=== PATIENT | female | born 1970 | race Two or more races ===

== ENCOUNTER 2025-05-28 11:04 | Inpatient (IN) | payer MEDICAID, OTHER ==
[~2025-05-28] VITALS: Ht 160 cm; Wt 197.3 kg
--- NOTE | 2025-05-28 11:30 | ED.PDOC ---
HPI (NEURO) HPI Comments This is a 55 year old female presenting to the ED with chief complaint of headache. Patient reports that she has been experiencing a right sided occipital headache with associated left eye blurred vision for the past 4 days. Patient relays that she has increased pain when laying down. Patient states she visited [facility] for her symptoms, but was advised to come to the ED for further evaluation. Patient states she has history of CVA, TIA, and SDH. Patient denies any dizziness, numbness, weakness, tingling, syncope, chest pain, SOB, or vision loss. Chief Complaint: Headache Time Seen by MD: 11:27 Reviewed Notes: Nurses Notes, Medications, Allergies Information Source: Patient, Spouse Mode of Arrival: Ambulatory Severity: Moderate Headache Severity: Moderate Timing: Days Duration: Since onset Prehospital treatment: None Headache Quality: Aching Headache Location: Occipital Onset: At rest Circumstances: Spontaneous Symptoms: Change of vision History of: CVA, TIA Associated Signs and Symptoms: Headache Past Medical History PAST MEDICAL HISTORY: CVA, TIA Past Medical History (Other): SDH Surgical History: Denies all surgeries [employer] History: Denies all [employer] Hx Family History Family History: Reviewed,noncontributory to illness Social History Smoker: Non-Smoker Alcohol: Denies ETOH Use Drugs: Denies Drug Use Lives In: Home Constitutional: denies: chills, diaphoresis, fatigue, fever, malaise, sweats, weakness, others EENTM: reports: blurred vision; denies: double vision, ear bleeding, ear discharge, ear drainage, ear pain, ear ringing, eye pain, eye redness, hearing loss, mouth pain, mouth swelling, nasal discharge, nose bleeding, nose congestion, nose pain, photophobia, tearing, throat pain, throat swelling, voice changes, others Respiratory: denies: cough, hemoptysis, orthopnea, SOB at rest, shortness of breath, SOB with excertion, stridor, wheezing, others Cardiovascular: denies: chest pain, dizzy spells, diaphoresis, Dyspnea on exertion, edema, irregular heart beat, left arm pain, lightheadedness, palpitat ions, PND, syncope, others Gastrointestinal: denies: abdomen distended, abdominal pain, blood streaked bow els, constipated, diarrhea, dysphagia, difficulty swallowing, hematemesis, melena, nausea, poor appetite, poor fluid intake, rectal bleeding, rectal pain, vomiting, others Genitourinary: denies: abnormal vagina bleeding, burning, dyspareunia, dysuria, flank pain, frequency, hematuria, incontinence, pain, , vagina discharge, urgency, others Neurological: reports: headache; denies: dizziness, fainting, left sided numbness, left sided weakness, numbness, paresthesia, pre-existing deficit, right sided numbness, right sided weakness, seizure, speech problems, tingling, tremors, weakness, others Musculoskeletal: denies: back pain, gout, joint pain, joint swelling, muscle pain, muscle stiffness, neck pain, others Integumetry: denies: bruises, change in color, change in hair/nails, dryness, laceration, lesions, lumps, rash, wounds, others Allergic/Immunocompromised: denies: Difficulty Healing, Frequent Infections, Hives, Itching, others Hematologic/Lymphatic: denies: anemia, blood clots, easy bleeding, easy bruising, swollen glands, others Endocrine: denies: excessive hunger, excessive sweating, excessive thirst, excessive urination, flushing, intolerance to cold, intolerance to heat, unexplained weight gain, unexplained weight loss, others Psychiatric: denies: anxiety, bipolar disorder, depression, hopeless, panic di sorder, schizophrenia, sleepless, suicidal, others All Other Systems: Reviewed and Negative Physical Exam General Appearance: Moderate Distress, Normal HEENT: Normal ENT Inspection, Pharynx Normal, TMs Normal Neck: Full Range of Motion, Non-Tender, Normal, Normal Inspection Respiratory: Chest Non-Tender, Lungs Clear, No Accessory Muscle Use, No Respiratory Distress, Normal Breath Sounds Cardiovascular: No Edema, No JVD, No Murmur, No Gallop, Normal Peripheral Pulses, Regular Rate/Rhythm Breast Exam: Deferred Gastrointestinal: No Organomegaly, Non Tender, No Pulsatile Mass, Normal Bowel Sounds, Soft Genitalia: Deferred Pelvic: Deferred Rectal: Deferred Extremities: No calf tenderness, Normal capillary refill, Normal inspection, Normal range of motion, Non-tender, No pedal edema Musculoskeletal : Apperance: Normal Neurologic: Alert, crew mess attendant II-XII nml as Tested, No Motor Deficits, Normal Affect, Normal Mood, No Sensory Deficits Cerebellar Function: Normal Reflexes: Normal Skin: Dry, Normal Color, Warm Peripheral Pulses: 3+ Radial (R), 3+ Radial (L) Lymphatic: No Adenopathy Was a procedure done? Was a procedure done?: No Differential Diagnosis (SZ) Seizure: Psychogenic Seizure, Closed Head Injury, CVA/TIA X-Ray, Labs, Meds, VS Vital Signs Date Time Temp Pulse Resp B/P (MAP) Pulse Ox O2 Delivery O2 Flow Rate FiO2 05/28/25 11:07 98.0 68 18 160/81 99 98.0 Lab Test 05/28/25 11:37 Range/Units White Blood Count 5.7 4.4-10.8 10^3/uL Red Blood Count 4.50 4.0-5.20 10^6/uL Hemoglobin 14.8 12.2-16.2 g/dL Hematocrit 42.8 36.0-46.0 % Mean Corpuscular Volume 95.0 80.0-100.0 fL Mean Corpuscular Hemoglobin 32.8 H 28.0-32.0 pg Mean Corpuscular Hemoglobin Concent 34.5 32.0-36.0 g/dL Red Cell Distribution Width 13.6 11.8-14.3 % Platelet Count 185 140-450 10^3/uL Mean Platelet Volume 8.4 6.9-10.8 fL Neutrophils (%) (Auto) 39.1 37.0-80.0 % Lymphocytes (%) (Auto) 52.5 H 10.0-50.0 % Monocytes (%) (Auto) 7.1 0.0-12.0 % Eosinophils (%) (Auto) 0.5 0.0-7.0 % Basophils (%) (Auto) 0.8 0.0-2.0 % Neutrophils # (Auto) 2.2 1.6-8.6 10 ^3/uL Lymphocytes # (Auto) 3.0 0.4-5.4 10 ^3/uL Monocytes # (Auto) 0.4 0-1.3 10 ^3/uL Eosinophils # (Auto) 0 0-0.8 10 ^3/uL Basophils # (Auto) 0 0-0.2 10 ^3/uL Nucleated Red Blood Cells 0.2 % Sodium Level 141 136-145 mmol/L Potassium Level 4.7 3.5-5.1 mmol/L Chloride Level 102 98-107 mmol/L Carbon Dioxide Level 30 20-31 mmol/L Anion Gap 9 5-15 Blood Urea Nitrogen 13 9-23 mg/dL Creatinine 0.70 0.550-1.02 mg/dL Glomerular Filtration Rate Calc 101 >90 mL/min BUN/Creatinine Ratio 18.6 10.0-20.0 Serum Glucose 134 H 74-106 mg/dL Calcium Level 10.5 H 8.7-10.4 mg/dL [place] [id number] Ph: [phone] DIAGNOSTIC IMAGING Diagnostic Imaging Report : [id number] Signed PATIENT: CRISTIAN HERNANDEZ ACCT: [id number] UNIT: [id number] : 1970 LOC: ER ROOM / BED: / AGE / SEX: 55 / F ADM STATUS: REG ER SERVICE 27 ORDERING PHYSICIAN: JULIO THOMASON MD PROCEDURE(s): HWOCT - HEAD WITHOUT CONTRAST REASON: headache ORDER NUMBER(s): [id number], ACCESSION NUMBER(s): [id number] EXAM: CT HEAD WITHOUT CONTRAST INDICATION: headache TECHNIQUE: CT images of the head were obtained without administration of IV contrast. CT scans at this facility use dose modulation, iterative reconstruction, and/or weight based dosing when appropriate to reduce radiation dose to as low as reasonably achievable. COMPARISON: None FINDINGS: PARENCHYMA: No acute hemorrhage. There is no mass effect, midline shift, or herniation. There is preservation of the [place] white differentiation. VENTRICLES: No hydrocephalus. EXTRA-AXIAL SPACES: No extra-axial fluid collections. OTHER: The bony structures are intact. Visualized portions of the paranasal sinuses and mastoid air cells are clear. IMPRESSION: 1. No CT evidence of an acute intracranial abnormality. ATED BY: MICHAEL SALINAS MD DICTATED DATE/TIME: 05/28/251220 SIGNED BY: MICHAEL SALINAS MD SIGNED DATE/TIME: 05/28/251220 CC: Patient alert. Complaining of headache vision changes. Vitals stable. Answering questions. Had similar symptom in the past. Possibly will need MRI. CT of the head reviewed does not show any acute changes. Neurologically intact. Neurology consultation. Explained to the patient. Continue monitoring. Images Reviewed?: Images reviewed and evaluated by me Time of 1ST Reevaluation: 12:26 Reevaluation 1ST: Unchanged Patient Education/Counseling: Diagnosis, Treatment Family Education/Counseling: Diagnosis, Treatment Departure 1 Departure Time of Disposition: 13:48 Impression: Primary Impression: TIA (transient ischemic attack) Disposition: 09 ADMITTED INPATIENT Admit to: Med Surg Condition: Guarded Critical Care Note Critical Care Time?: Yes (90 min-critical care time only) Stability Stability form required: No Heart Score Heart Score: Heart Score Response (Comments) Value History N/A 0 EKG N/A 0 Age N/A 0 Risk Factors N/A 0 Troponin N/A 0 Total 0 I personally scribed for JULIO THOMASON MD ([email or web address]) on 05/28/25 at 11:30. Electronically submitted by Jw Jose ([email or web address]). I personally scribed for JULIO THOMASON MD ([email or web address]) on 05/28/25 at 12:38. Electronically submitted by Jw Jose ([email or web address]). JULIO THOMASON MD May 28, 2025 11:30
[2025-05-28 11:51] LABS: Hematocrit 42.8 % (36.0-46.0); Hemoglobin 14.8 g/dL (12.2-16.2); Mean Corpuscular Hemoglobin 32.8 pg (28.0-32.0); Mean Corpuscular Volume 95.0 fL (80.0-100.0); Nucleated Red Blood Cells % 0.2 %
[2025-05-28 12:00] LABS: Chloride 102 mmol/L (98-107); Potassium 4.7 mmol/L (3.5-5.1); Sodium 141 mmol/L (136-145)
[2025-05-28 12:01] LABS: Anion Gap 9 (5-15); Carbon Dioxide 30 mmol/L (20-31)
[2025-05-28 12:02] LABS: Calcium 10.5 mg/dL (8.7-10.4)
[2025-05-28 12:06] LABS: BUN/Creatinine Ratio 18.6 (10.0-20.0); Blood Urea Nitrogen 13 mg/dL (9-23)
[2025-05-28 12:07] LABS: Glucose 134 mg/dL (74-106)
--- NOTE | 2025-05-28 12:23 | DVH ---
EXAM: CT HEAD WITHOUT CONTRAST INDICATION: headache TECHNIQUE: CT images of the head were obtained without administration of IV contrast. CT scans at [facility] facility use dose modulation, iterative reconstruction, and/or weight based dosing when appropriate to reduce radiation dose to as low as reasonably achievable. COMPARISON: None FINDINGS: PARENCHYMA: No acute hemorrhage. There is no mass effect, midline shift, or herniation. There is pres ervation of the [place] white differentiation. VENTRICLES: No hydrocephalus. EXTRA-AXIAL SPACES: No extra-axial fluid collections. OTHER: The bony structures are intact. Visualized portions of the paranasal sinuses and mastoid air cells are clear. IMPRESSION: 1. No CT evidence of an acute intracranial abnormality.
[2025-05-28] MEDS ORDERED: DEXTROSE (50%) 50ML SYRG IV PRN (21:00)
[2025-05-28] MEDS ORDERED: SODIUM CHLORIDE 0.9% 1,000 ML IV ONE (21:00)
[2025-05-28] MEDS: ACETAMINOPHEN 650 mg PER 20.3 mL UD PO ONE (21:00)
[2025-05-28 21:16] LABS: Urine Protein, UAD Negative (Negative)
--- NOTE | 2025-05-28 21:38 | DVHHPRES ---
History of Present Illness Resident Creating Document: NITESH CASTILLO History of Present Illness Patient is a 55-year-old female with past medical history of rheumatoid arthritis and type 2 diabetes mellitus, presented to [facility] ED with complaint of headache. She reports experiencing a right-sided occipital headache for the past four days, which is associated with blurred vision in her left eye, pain worsens when lying down. The patient states that she visited urgent care at [place] for these symptoms today morning and was advised to come to the emergency department for further evaluation. She denies dizziness, numbness, weakness, tingling, syncope, chest pain, shortness of breath, or vision loss. On evaluation in the ED, patient is afebrile and blood pressure is 160/81 mmHg. Initial labs show serum glucose 134. CT head without contrast shows no CT evidence of an acute intracranial abnormality. Patient is admitted for further evaluation and management. Rheumatologic: Rheumatoid arthritis Endocrine: Diabetes Past Surgical History: Family History: None Smoke: No ALCOHOL: none Drugs: None Lives: with Family Review of Systems Review of Systems Eyes: No Pain, Right eye blurred vision, No Conjunctivae inflammation, No Eyelid inflammation, No Other, No Redness ENT: No Ear pain, No Ear discharge, No Nose pain, No Nose discharge, No Nose congestion, No Mouth pain, No Mouth swelling, No Throat pain, No Throat swelling, No Other Cardiovascular: No Chest Pain, No Palpitations, No Orthopnea, No Paroxysmal No Dyspnea, No Edema, No Lt Headedness, No Other Respiratory: No Cough, No Dry, No Shortness of breath, No SOB with exertion, No Wheezing, No Hemoptysis, No Pleuritic Pain, No Sputum, No Other Gastrointestinal: No Nausea, No Vomiting, No Abdominal Pain, No Diarrhea, No Constipation, No Melena, No Hematochezia, No Other Genitourinary: No Dysuria, No Frequency, No Incontinence, No Hematuria, No Retention, No Other Musculoskeletal: No other, No neck pain, No shoulder pain, No arm pain, No back pain, No hand pain, No leg pain, No foot pain Skin: No Rash, No Lesions, No Jaundice, No Bruising, No Other Allergies: Coded Allergies: Diclofenac (Verified Allergy, Unknown, 05/28/25) NSAIDs (Verified Allergy, Unknown, 05/28/25) Medications Current Medications Medications Dose Ordered Sig/Norma Route Start Time Stop Time Status Last Admin Dose Admin Diagnostic Test (Pha) 1 strip ACHS 05/28/25 22:00 UNV Insulin Human Regular ACHS SC 05/28/25 22:00 UNV Dextrose 50 ml UD PRN IV 05/28/25 21:00 UNV Acetaminophen 650 mg Q6HP PRN PO 05/28/25 21:00 UNV Exam Vital Signs Vital Signs Date Time Temp Pulse Resp B/P (MAP) Pulse Ox O2 Delivery O2 Flow Rate FiO2 05/28/25 19:57 97.8 72 14 145/88 (107) 97 97.8 Exam General Appearance: Cooperative. Well developed. Well nourished. NAD Head Exam: Normal inspection Neck Exam: Normal inspection. Non-tender. Normal alignment Pulmonary/Respiratory: Chest non-tender. Clear bilateral breath sounds, no crackles, no wheezing. Cardiovascular/Chest: Regular rate and rhythm. No murmurs. No JVD. Peripheral Pulses: 2+ Radial (R). 2+ Radial (L). 2+ Pedal (R). 2+ Pedal (L) Abdominal Exam: Normal bowel sounds. Soft. normal abdomen, no visible veins, Nontender. No hepatospenomegaly. No masses Ankle Exam: Negative ankle edema Lower extremities: Negative lower extremity edema Neuro/Mental Status: A&O x4. Coherent. Negative Romberg test Thoughts/Psych: Normal thought pattern. Appropriate mood and affect. Good judgement and insight Skin Exam: Normal inspection. Normal color. Warm. Dry Labs/Xrays Labs Test 05/28/25 20:00 05/28/25 11:37 Range/Units Urine Color Colorless Yellow Urine Clarity Clear Clear Urine pH 5.5 5.0-9.0 Urine Specific [place] 1.005 1.001-1.035 Urine Protein Negative Negative Urine Ketones Negative Negative Urine Blood Negative Negative /uL Urine Nitrite Negative Negative Urine Bilirubin Negative Negative Urine Urobilinogen Normal Negative mg/dL Urine Leukocyte Esterase Negative Negative /uL Urine RBC <1 0 - 4 /hpf Urine Microscopic WBC 1 0-5 /HPF Urine Squamous Epithelial Cells None seen <5 /hpf Urine Bacteria None seen None Seen /hpf Urine Glucose Normal Normal mg/dL White Blood Count 5.7 4.4-10.8 10^3/uL Red Blood Count 4.50 4.0-5.20 10^6/uL Hemoglobin 14.8 12.2-16.2 g/dL Hematocrit 42.8 36.0-46.0 % Mean Corpuscular Volume 95.0 80.0-100.0 fL Mean Corpuscular Hemoglobin 32.8 H 28.0-32.0 pg Mean Corpuscular Hemoglobin Concent 34.5 32.0-36.0 g/dL Red Cell Distribution Width 13.6 11.8-14.3 % Platelet Count 185 140-450 10^3/uL Mean Platelet Volume 8.4 6.9-10.8 fL Neutrophils (%) (Auto) 39.1 37.0-80.0 % Lymphocytes (%) (Auto) 52.5 H 10.0-50.0 % Monocytes (%) (Auto) 7.1 0.0-12.0 % Eosinophils (%) (Auto) 0.5 0.0-7.0 % Basophils (%) (Auto) 0.8 0.0-2.0 % Neutrophils # (Auto) 2.2 1.6-8.6 10 ^3/uL Lymphocytes # (Auto) 3.0 0.4-5.4 10 ^3/uL Monocytes # (Auto) 0.4 0-1.3 10 ^3/uL Eosinophils # (Auto) 0 0-0.8 10 ^3/uL Basophils # (Auto) 0 0-0.2 10 ^3/uL Nucleated Red Blood Cells 0.2 % Sodium Level 141 136-145 mmol/L Potassium Level 4.7 3.5-5.1 mmol/L Chloride Level 102 98-107 mmol/L Carbon Dioxide Level 30 20-31 mmol/L Anion Gap 9 5-15 Blood Urea Nitrogen 13 9-23 mg/dL Creatinine 0.70 0.550-1.02 mg/dL Glomerular Filtration Rate Calc 101 >90 mL/min BUN/Creatinine Ratio 18.6 10.0-20.0 Serum Glucose 134 H 74-106 mg/dL Calcium Level 10.5 H 8.7-10.4 mg/dL SEPSIS Sepsis Screen Date sepsis recognized/suspect: May 28, 2025 Time Sepsis recognized/suspect: 1110 Recent Procedure: No On Antibiotic Therapy: No Respiratory Rate >20: No Heart Rate >90: No Temp<36 C (96.8 F) or >38.3 C: No SBP <90 or MAP <65 mmHG: No New Acute Mental Status Change: No Is the patient on CPAP, BIPAP,: No Physician Orders Admit (05/28/25 20:59) Allergies (05/28/25 20:59) Code Status (05/28/25 20:59) Complete Blood Count (05/29/25 04:00) Comprehensive Metabolic Panel (05/29/25 04:00) Condition: Stable (05/28/25 20:59) Stat Ekg For Chest Pain (05/28/25 20:59) Notify Md Of Changes From Base (05/28/25 20:59) Die Forger For 24 Hours (05/28/25 20:59) Emergency Dysrhythmia Protocol (05/28/25) Rhythm Strips Once Every Shift (05/28/25:59) Erythrocyte Sedimentation Rate (05/28/25:59) C-Reactive Protein (05/28/25:59) Drug Screen (05/28/25 20:59) Glucose Blood (Accu-Chek Comfort Curve T (05/28/25 22:00) Insulin R (Human) (Insulin R) (05/28/25 22:00) Dextrose 50% Syringe (05/28/25 21:00) Acetaminophen Solution Oral (Tylenol Nica (05/28/25 21:00) Acetaminophen Solution Oral (Tylenol Nica (05/28/25 21:00) Electrocardigram (05/28/25 20:59) Chest Xray 1 View (05/28/25 20:59) Hepatic Panel (05/28/25 20:59) B-Type Natriuretic Peptide (05/28/25 20:59) Troponin-I Hs (05/28/25 20:59) Sodium Chloride 0.9% (05/28/25 21:00) Thyroid Stimulating Hormone (05/28/25 20:59) Vital Signs Date Time Temp Pulse Resp B/P (MAP) Pulse Ox O2 Delivery O2 Flow Rate FiO2 05/28/25 19:57 97.8 72 14 145/88 (107) 97 97.8 05/28/25 16:55 98.3 63 16 135/76 (95) 97 98.3 05/28/25 14:30 97.5 70 12 125/77 (93) 97 97.5 Laboratory Tests Test 05/28/25 11:37 White Blood Count 5.7 10^3/uL (4.4-10.8) Assessment/Plan Assessment/Plan Acute intractable headache likely secondary to hypertension Migraine Ruled out TIA CT head without contrast: No CT evidence of an acute intracranial abnormality Brain MRI ordered Pain management with Tylenol 650 mg PO every 6 hours sodium chloride IV 125 MLS/HR Type 2 diabetes mellitus with hyperglycemia Mild SSI Accu-Chek A1C pending History of rheumatoid arthritis stable, on methotrexate Diet: Carb Goals of care: Full code, discussed for >16 minutes on 05/29/25 Plan discussed with patient Plan discussed with Dr. Peña Plan discussed with: Patient My Orders Orders - NITESH CASTILLO Procedure Category Date Status Time Admit ADMIT 05/28/25 Transmitted 20:59 Allergies CYRIL 05/28/25 In Process 20:59 Code Status CODE 05/28/25 Transmitted 20:59 Complete Blood Count LAB 05/29/25 Verified 04:00 Comprehensive LAB 05/29/25 Verified Metabolic Panel 04:00 Condition: Stable [facility] 05/28/25 In Process 20:59 Stat Ekg For Chest [facility] 05/28/25 In Process Pain 20:59 Notify Of Changes [facility] 05/28/25 In Process From Base 20:59 Die Forger For [facility] 05/28/25 In Process 24 Hours 20:59 Emergency Dysrhythmia [facility] 05/28/25 In Process Protocol 20:59 Rhythm Strips Once [facility] 05/28/25 In Process Every Shift 20:59 Erythrocyte LAB 05/28/25 Logged Sedimentation Rate 20:59 C-Reactive Protein LAB 05/28/25 Logged 20:59 Drug Screen LAB 05/28/25 Logged 20:59 Glucose Blood PHA 05/28/25 Logged (Accu-Chek Comfort 22:00 Insulin R (Human) PHA 05/28/25 Logged (Insulin R) 22:00 Dextrose 50% Syringe PHA 05/28/25 Logged 21:00 Acetaminophen PHA 05/28/25 Logged Solution Oral 21:00 Acetaminophen PHA 05/28/25 Logged Solution Oral 21:00 Electrocardigram EKG 05/28/25 Logged 20:59 Chest Xray 1 View XY 05/28/25 Logged 20:59 Hepatic Panel LAB 05/28/25 Logged 20:59 B-Type Natriuretic LAB 05/28/25 Logged Peptide 20:59 Troponin-I Hs LAB 05/28/25 Logged 20:59 Sodium Chloride 0.9% PHA 05/28/25 Logged 21:00 Thyroid Stimulating LAB 05/28/25 Logged Hormone 20:59 Date of Service: May 28, 2025 Billing Provider: RANDELL PEÑA MD Common Visit Codes: [id number] INP/OBS CARE (HIGH) NITESH CASTILLO RESIDENT May 28, 2025 21:38 JERI BROOKS RESIDENT May 29, 2025 08:27 RANDELL PEÑA MD Jun 03, 2025 11:58
[2025-05-28 21:57] LABS: Alanine Aminotransferase 38.0 U/L (7-40); Alkaline Phosphatase 61.0 U/L (46-116); Bilirubin, Direct 0.2 mg/dL (<0.3); Bilirubin, Total 0.7 mg/dL (0.2-1.0)
[2025-05-28 21:58] LABS: Albumin 4.8 g/dL (3.2-4.8); Total Protein 8.3 g/dL (5.7-8.2)
[2025-05-28] MEDS ORDERED: ACCU-CHEK COMFORT CURVE STRIP VI SCH (22:00)
[2025-05-28] MEDS ORDERED: InsuLIN REG 1unit/0.01ml Soln (100units/ml) SC SCH (22:00)
--- NOTE | 2025-05-28 22:24 | DVH ---
CHEST RADIOGRAPH Indication: chest pain Technique: Single frontal view of the chest was obtained Comparison: None FINDINGS: Lines and Tubes: None Lungs: No focal consolidation. Pleura: No effusion. No pneumothorax. Cardiomediastinal contours: Unremarkable Bones: No acute osseous abnormality. IMPRESSION: 1. No acute cardiopulmonary disease.
[2025-05-28 23:41] LABS: Amphetamine Screen, Urine Neg (NEGATIVE); Barbiturate Scree,Urine Neg (NEGATIVE); Benzodiazephine Screen, Urine Neg (NEGATIVE); Cannabinoid Screen, Urine Neg (NEGATIVE); Cocaine Screen, Urine Neg (NEGATIVE); Opiate Scree,Urine Neg (NEGATIVE); Phencyclidine Screen, Urine Neg (NEGATIVE)
[2025-05-29] VITALS (7 sets, daily range): BP systolic 107–150; BP diastolic 53–70; PULSE 58–68; RESP 16–18; TEMP 97.2–98.9; O2SAT 94–100
[2025-05-29] MEDS ORDERED: METF-371 PO (01:03)
[2025-05-29] MEDS ORDERED: METH2.5T PO (01:03)
[2025-05-29] MEDS: ACETAMINOPHEN 650 mg PER 20.3 mL UD PO ONE (01:30)
[2025-05-29] MEDS: InsuLIN REG 1unit/0.01ml Soln (100units/ml) SC SCH (01:30)
[2025-05-29] MEDS: ACCU-CHEK COMFORT CURVE STRIP VI SCH (01:30)
[2025-05-29] MEDS: SODIUM CHLORIDE 0.9% 1,000 ML IV ONE (01:58)
[2025-05-29 04:59] LABS: Alanine Aminotransferase 30 U/L (7-40); Albumin 4.2 g/dL (3.2-4.8); Alkaline Phosphatase 59 U/L (46-116); Anion Gap 11 (5-15); BUN/Creatinine Ratio 20.0 (10.0-20.0); Blood Urea Nitrogen 12 mg/dL (9-23); Calcium 9.6 mg/dL (8.7-10.4); Carbon Dioxide 27 mmol/L (20-31); Chloride 105 mmol/L (98-107); Hematocrit 38.9 % (36.0-46.0); Hemoglobin 13.4 g/dL (12.2-16.2); Mean Corpuscular Hemoglobin 32.6 pg (28.0-32.0); Mean Corpuscular Volume 94.6 fL (80.0-100.0); Nucleated Red Blood Cells % 0.1 %; Potassium 3.7 mmol/L (3.5-5.1); Sodium 143 mmol/L (136-145); Total Protein 7.2 g/dL (5.7-8.2)
[2025-05-29 05:00] LABS: Bilirubin, Total 0.7 mg/dL (0.2-1.0)
[2025-05-29 05:07] LABS: Glucose 123 mg/dL (74-106)
--- NOTE | 2025-05-29 08:56 | DVH ---
PROCEDURE: MRI OF THE BRAIN WITHOUT CONTRAST. CLINICAL INDICATION: headache TECHNIQUE: Multiplanar, multi sequence MRI of the brain was performed without intravenous contrast. COMPARISON: CT HEAD WITHOUT CONTRAST on DOS: 05/28/25 FINDINGS: The signal characteristics of the brain parenchyma is within normal limits. There are no areas of res tricted diffusion to suggest acute infarct. No evidence of space occupying mass lesion, extra-axial c ollections or hemorrhage is noted. The ventricles, sulci and basal cisterns are intact. There is no s ignal abnormality in the posterior fossa. The mastoid air cells are clear. Mild mucosal thickening in the left maxillary sinus. The orbits and nasopharynx are intact. The osseous structures are intact. The vessels of the skull base demonstrate signal void consistent with patency. IMPRESSION: 1. No acute intracranial abnormality.
[2025-05-29] MEDS ORDERED: KETOROLAC TROMETH 30 MG/ML 1ML VIAL IV ONE (09:30)
[2025-05-29] MEDS ORDERED: KETOROLAC TROMETH 30 MG/ML 1ML VIAL IV PRN (09:30)
[2025-05-29] MEDS: ACETAMINOPHEN 650 mg PER 20.3 mL UD PO PRN (12:30)
--- NOTE | 2025-05-29 19:56 | DVHPNRES ---
Progress Note Date Seen: May 29, 2025 Resident Creating Document: [facility] RESIDENT Has the PT tested + for MRSA If YES, has PT been informed?: No Medical Necessity Reason Pt with a Central, PICC or Fol: No Subjective Review of Systems Lisa Cifuentes is a 55-year-old female, with past medical history of rheumatoid arthritis and type 2 diabetes mellitus. The patient presented to the ED with chief complaint of 1 day of headache, 9/10, pressure-like, localized in the right temporal area that irradiates to the right eye and face; at the same time pain irradiates to the back of the head an neck. The pain in the eye is associated with eye tearing , blurriness and dizziness. The pain worsens when lying down. The patient states that she visited urgent care at [facility] for these symptoms today morning and was advised to come to the emergency department for further evaluation. She denies dizziness, numbness, tingling, weakness, tingling, syncope, chest pain, shortness of breath, or vision loss. On evaluation in the ED, patient is afebrile and blood pressure is 160/81 mmHg. Initial labs show serum glucose 134. CT head without contrast shows no CT evidence of an acute intracranial abnormality. Patient was admitted for further evaluation and management. Admission course: On 05/29/25, the patient was evaluated and examined bedside. VS, labs and chart was reviewed. Labs are unremarkable. HbA1c was 6.5%. MRI of the head report no abnormality. The patient reports feeling better, headache is 3/10. ERS and CRP were ordered. We will continue following the progress of this patient. Review of Systems Eyes: No Pain, Right eye blurred vision, No Conjunctivae inflammation, No Eyelid inflammation, No Other, No Redness ENT: No Ear pain, No Ear discharge, No Nose pain, No Nose discharge, No Nose congestion, No Mouth pain, No Mouth swelling, No Throat pain, No Throat swelling, No Other Cardiovascular: No Chest Pain, No Palpitations, No Orthopnea, No Paroxysmal No Dyspnea, No Edema, No Lt Headedness, No Other Respiratory: No Cough, No Dry, No Shortness of breath, No SOB with exertion, No Wheezing, No Hemoptysis, No Pleuritic Pain, No Sputum, No Other Gastrointestinal: No Nausea, No Vomiting, No Abdominal Pain, No Diarrhea, No Constipation, No Melena, No Hematochezia, No Other Genitourinary: No Dysuria, No Frequency, No Incontinence, No Hematuria, No Retention, No Other Musculoskeletal: No other, No neck pain, No shoulder pain, No arm pain, No back pain, No hand pain, No leg pain, No foot pain Skin: No Rash, No Lesions, No Jaundice, No Bruising, No Other Allergies: Diclofenac (Verified Allergy, Unknown, 05/28/25) NSAIDs (Verified Allergy, Unknown, 05/28/25) Objective vital signs Vital Sign Date Time Temp Pulse Resp B/P (MAP) Pulse Ox O2 Delivery O2 Flow Rate FiO2 05/29/25 15:00 97.2 66 17 150/69 (96) 94 97.2 05/29/25 15:00 Room Air* 0 21 Total Intake and Output 05/28/25 05/28/25 05/29/25 15:00 23:00 07:00 Intake Total 300 ml Balance 300 ml medications Current Medications Medications Dose Ordered Sig/Norma Route Start Time Stop Time Status Last Admin Dose Admin Dextrose 50 ml UD PRN IV 05/28/25 21:00 Acetaminophen 650 mg Q6HP PRN PO 05/29/25 05:00 05/29/25 18:33 650 MG Diagnostic Test (Pha) 1 strip ACHS 05/29/25 01:30 05/29/25 11:30 1 STRIP Insulin Human Regular ACHS SC 05/29/25 01:30 05/29/25 12:35 2 UNITS Ketorolac Tromethamine 15 mg Q6HPRN PRN IV 05/29/25 09:30 06/03/25 09:29 Hold Examination General Appearance: Not in distress, alert, oriented X3, Cooperative. HEENT: neck: tender to passive movement. Atraumatic, PERRLA, EOMI, Mucous membrane moist/pink Respiratory: bilateral mild crackles on the bases. normal lung expansion. Cardiovascular: Regular rate, Normal S1, Normal S2, No murmurs, no chest wall tenderness Abdominal: Normal bowel sounds, Soft, No tenderness, No hepatospenomegaly, No masses Extremities: Normal ROM No clubbing, No cyanosis, No edema, Normal pulses, No tenderness/swelling Skin: No rashes, No breakdown, No significant lesion Neuro: Grossly intact cranial nerves Cranial nerves 3-12 NL, Reflexes 2+, no neurologic deficit, strength 5/5, sensitivity 5/5. Psych/Mental Status: Normal mood. laboratory and microbiology Laboratory Tests 05/29/25 03:50 Test 05/29/25 03:50 Range/Units Serum Glucose 123 H 74-106 mg/dL Problem List/Assessment/Plan Problem List/Assessment/Plan #Acute intractable headache likely secondary to hypertension #Migraine #Ruled out TIA CT head without contrast: No CT evidence of an acute intracranial abnormality Brain MRI negative to intracranial hemorrhage. Pain management with Ketorolac 30mg po q8hrs IV fluids: NS #Type 2 diabetes mellitus with hyperglycemia Mild SSI Accu-Chek HbA1C: 6.5% #Rheumatoid arthritis stable, on methotrexate Diet: Low carbohydrate DVT prophylaxis: patient deambulates Goals of care discussed with the patient > 35 min. Discussed plan of care with Code status: Full code PCP: Does not recall name at this time. Plan discussed with: Patient, the patient agrees with the plan. Plan discussed with: Patient My Orders My Orders Orders - [facility] Procedure Category Date Status Time Ketorolac Injection PHA 05/29/25 In Process (Toradol Injection) 09:30 Complete Blood Count LAB 05/30/25 Verified 04:00 Basic Metabolic Panel LAB 05/30/25 Verified 04:00 Date of Service: May 29, 2025 Billing Provider: MIRELA OVIEDO MD Common Visit Codes: [id number] INP/OBS CARE(HIGH) Date of Service: May 29, 2025 Billing Provider: MIRELA OVIEDO MD Common Visit Codes: [id number] INP/OBS CARE(HIGH) [facility] May 29, 2025 19:56 MIRELA OVIEDO MD May 29, 2025 22:30
[2025-05-30 01:00] VITALS: BP 115/66; PULSE 61; RESP 18; TEMP 98.2; O2SAT 95
[2025-05-30 05:00] VITALS: BP 106/60; PULSE 64; RESP 18; TEMP 98.1; O2SAT 95
[2025-05-30 06:52] LABS: Hematocrit 37.1 % (36.0-46.0); Hemoglobin 13.1 g/dL (12.2-16.2); Mean Corpuscular Hemoglobin 33.5 pg (28.0-32.0); Mean Corpuscular Volume 94.7 fL (80.0-100.0)
[2025-05-30 06:56] LABS: Potassium 3.9 mmol/L (3.5-5.1); Sodium 145 mmol/L (136-145)
[2025-05-30 06:57] LABS: Anion Gap 9 (5-15); Carbon Dioxide 28 mmol/L (20-31)
[2025-05-30 06:58] LABS: Calcium 8.9 mg/dL (8.7-10.4)
[2025-05-30 07:02] LABS: BUN/Creatinine Ratio 13.7 (10.0-20.0); Blood Urea Nitrogen 10 mg/dL (9-23)
[2025-05-30 07:05] LABS: Chloride 108 mmol/L (98-107); Glucose 113 mg/dL (74-106)
[2025-05-30 08:00] VITALS: PULSE 73; PULSE 74; RESP 18; O2SAT 95
[2025-05-30] MEDS: HYDROcodone-ACET 5/325MG TAB PO ONE (08:10)
[2025-05-30 08:39] LABS: Total Cells Counted 100.0 (100)
[2025-05-30 09:00] VITALS: BP 106/62; PULSE 53; RESP 20; TEMP 98; O2SAT 97
--- NOTE | 2025-05-30 10:56 | DVHDSRES ---
Discharge Summary Date of Admission Resident Creating Document: [facility] RESIDENT May 28, 2025 at 20:59 Date of Discharge: May 30, 2025 Admitting Diagnosis TIA Labs/Diagnostic Data: Laboratory Results Test 05/30/25 05:46 05/30/25 05:42 05/29/25 03:50 05/28/25 20:00 POC Glucose 128 mg/dl (70-106) White Blood Count 5.1 10^3/uL (4.4-10.8) Red Blood Count 3.92 10^6/uL (4.0-5.20) Hemoglobin 13.1 g/dL (12.2-16.2) Hematocrit 37.1 % (36.0-46.0) Mean Corpuscular Volume 94.7 fL (80.0-100.0) Mean Corpuscular Hemoglobin 33.5 pg (28.0-32.0) Mean Corpuscular Hemoglobin Concent 35.4 g/dL (32.0-36.0) Red Cell Distribution Width 13.7 % (11.8-14.3) Platelet Count 152 10^3/uL (140-450) Mean Platelet Volume 8.8 fL (6.9-10.8) Neutrophils (%) (Auto) % (37.0-80.0) Lymphocytes (%) (Auto) % (10.0-50.0) Monocytes (%) (Auto) % (0.0-12.0) Basophils (%) (Auto) % (0.0-2.0) Neutrophils # (Auto) 10 ^3/uL (1.6-8.6) Lymphocytes # (Auto) 10 ^3/uL (0.4-5.4) Monocytes # (Auto) 10 ^3/uL (0-1.3) Differential Total Cells Counted 100.0 (100) Neutrophils % (Manual) 32 (37.0-80.0) Band Neutrophils % (Manual) 2 Lymphocytes % (Manual) 56 (10.0-50.0) Monocytes % (Manual) 5 (0-12) Eosinophils % (Manual) 1 (0-7) Basophils % (Manual) 0 (0.0-2.0) Metamyelocytes % (manual) 0 Myelocytes % (Manual) 0 Promyelocytes % (Manual) 0 Blast Cells % (Manual) 0 Reactive Lymphocytes 4 Platelet Estimate Adequate Sodium Level 145 mmol/L (136-145) Potassium Level 3.9 mmol/L (3.5-5.1) Chloride Level 108 mmol/L (98-107) Carbon Dioxide Level 28 mmol/L (20-31) Anion Gap 9 (5-15) Blood Urea Nitrogen 10 mg/dL (9-23) Creatinine 0.73 mg/dL (0.550-1.02) Glomerular Filtration Rate Calc 96 mL/min (>90) BUN/Creatinine Ratio 13.7 (10.0-20.0) Serum Glucose 113 mg/dL (74-106) Calcium Level 8.9 mg/dL (8.7-10.4) Eosinophils (%) (Auto) 0.7 % (0.0-7.0) Eosinophils # (Auto) 0 10 ^3/uL (0-0.8) Basophils # (Auto) 0 10 ^3/uL (0-0.2) Nucleated Red Blood Cells 0.1 % Hemoglobin A1c 6.5 % A1C (<5.7) Total Bilirubin 0.7 mg/dL (0.2-1.0) Aspartate Amino Transferase (AST) 24 U/L (13-40) Alanine Aminotransferase (ALT) 30 U/L (7-40) Alkaline Phosphatase 59 U/L (46-116) Total Protein 7.2 g/dL (5.7-8.2) Albumin 4.2 g/dL (3.2-4.8) Urine Color Colorless (Yellow) Urine Clarity Clear (Clear) Urine pH 5.5 (5.0-9.0) Urine Specific [place] 1.005 (1.001-1.035) Urine Protein Negative (Negative) Urine Ketones Negative (Negative) Urine Blood Negative /uL (Negative) Urine Nitrite Negative (Negative) Urine Bilirubin Negative (Negative) Urine Urobilinogen Normal mg/dL (Negative) Urine Leukocyte Esterase Negative /uL (Negative) Urine RBC <1 /hpf (0 - 4) Urine Microscopic WBC 1 /HPF (0-5) Urine Squamous Epithelial Cells None seen /hpf (<5) Urine Bacteria None seen /hpf (None Seen) Urine Glucose Normal mg/dL (Normal) Urine Opiates Screen Neg (NEGATIVE) Urine Fentanyl Screen Neg (NEGATIVE) Urine Barbiturates Screen Neg (NEGATIVE) Urine Phencyclidine Screen Neg (NEGATIVE) Urine Amphetamines Screen Neg (NEGATIVE) Urine Benzodiazepines Screen Neg (NEGATIVE) Urine Cocaine Screen Neg (NEGATIVE) Urine Cannabinoids Screen Neg (NEGATIVE) Test 05/28/25 11:37 Erythrocyte Sedimentation Rate 18 mm/hr (0-20) Direct Bilirubin 0.2 mg/dL (<0.3) Troponin I High Sensitivity < 3 ng/L (</=34) C-Reactive Protein High Sensitivity 0.32 mg/dL (<1.0) B-Type Natriuretic Peptide 5.37 pg/mL (0-100) Thyroid Stimulating Hormone (TSH) 1.84 uIU/mL (0.55-4.78) Other Laboratory Tests 05/30/25 05:42 Brief Hx & Hospital Course: Lisa Cifuentes is a 55-year-old female, with past medical history of rheumatoid arthritis and type 2 diabetes mellitus who presented to the ED with chief complaint of 1 day of headache, 9/10, pressure-like, localized in the right temporal area that irradiates to the right eye and face and to the back of the head and neck associated with eye tearing , blurriness and dizziness and worsens when lying down. She denied dizziness, numbness, tingling, weakness, tingling, syncope, chest pain, shortness of breath, or vision loss. On evaluation in the ED, her blood pressure was 160/[address] head without contrast showed no CT evidence of an acute intracranial abnormality. MRI of the head reported no abnormality. HbA1c was 6.5%. During the course of her hospitalization, her headache reduced significantly and she was discharged home in a stable condition. All recommendations were thoroughly explained to the patient and she demonstrated understanding of the same. She was asked to follow-up in discharge Clinic on Sunday morning and with PCP. Past medical history: Rheumatoid arthritis, type 2 diabetes mellitus Past surgical history: C- section Social history: Lives at home with family Denies history of smoking, alcohol, drug consumption General Appearance: Not in distress, alert, oriented X4, Cooperative. HEENT: neck: tender to passive movement. Atraumatic, PERRLA, EOMI, Mucous membrane moist/pink Respiratory: normal lung sounds, normal lung expansion. Cardiovascular: Regular rate, Normal S1, Normal S2, No murmurs, no chest wall tenderness Abdominal: Normal bowel sounds, Soft, No tenderness, No hepatospenomegaly, No masses Extremities: Normal ROM No clubbing, No cyanosis, No edema, Normal pulses, No tenderness/swelling Skin: No rashes, No breakdown, No significant lesion Neuro: Grossly intact cranial nerves Cranial nerves 3-12 NL, Reflexes 2+, no neurologic deficit, strength 5/5, sensitivity 5/5. Psych/Mental Status: Normal mood. Operations or Procedures 1.PROCEDURE(s): HWOCT - HEAD WITHOUT CONTRAST REASON: headache ORDER NUMBER(s): [id number], ACCESSION NUMBER(s): [id number] EXAM: CT HEAD WITHOUT CONTRAST INDICATION: headache TECHNIQUE: CT images of the head were obtained without administration of IV contrast. CT scans at this facility use dose modulation, iterative reconstruction, and/or weight based dosing when appropriate to reduce radiation dose to as low as reasonably achievable. COMPARISON: None FINDINGS: PARENCHYMA: No acute hemorrhage. There is no mass effect, midline shift, or herniation. There is preservation of the [place] white differentiation. VENTRICLES: No hydrocephalus. EXTRA-AXIAL SPACES: No extra-axial fluid collections. OTHER: The bony structures are intact. Visualized portions of the paranasal sinuses and mastoid air cells are clear. IMPRESSION: No CT evidence of an acute intracranial abnormality. 2.PROCEDURE(s): CXR1 - CHEST XRAY 1 VIEW REASON: chest pain ORDER NUMBER(s): [id number], ACCESSION NUMBER(s): [id number] CHEST RADIOGRAPH Indication: chest pain Technique: Single frontal view of the chest was obtained Comparison: None FINDINGS: Lines and Tubes: None Lungs: No focal consolidation. Pleura: No effusion. No pneumothorax. Cardiomediastinal contours: Unremarkable Bones: No acute osseous abnormality. IMPRESSION: No acute cardiopulmonary disease. 3.PROCEDURE(s): [facility] - BRAIN HEAD WO CONTRAST REASON: headache ORDER NUMBER(s): [id number], ACCESSION NUMBER(s): [id number] PROCEDURE: MRI OF THE BRAIN WITHOUT CONTRAST. CLINICAL INDICATION: headache TECHNIQUE: Multiplanar, multi sequence MRI of the brain was performed without intravenous contrast. COMPARISON: CT HEAD WITHOUT CONTRAST on DOS: 05/28/25 FINDINGS: The signal characteristics of the brain parenchyma is within normal limits. There are no areas of restricted diffusion to suggest acute infarct. No evidence of space occupying mass lesion, extra-axial collections or hemorrhage is noted. The ventricles, sulci and basal cisterns are intact. There is no signal abnormality in the posterior fossa. The mastoid air cells are clear. Mild mucosal thickening in the left maxillary sinus. The orbits and nasopharynx are intact. The osseous structures are intact. The vessels of the skull base demonstrate signal void consistent with patency. IMPRESSION: No acute intracranial abnormality. Condition at Discharge: Fair Final Diagnosis/Problems List acute intractable headache likely secondary to hypertension acute attack of migraine ruled out TIA type 2 diabetes mellitus with hyperglycemia chronic rheumatoid arthritis Discharge Disposition: Home Discharge Instruct/Medications Diet: Cardiac 2g Na,low cholest Activity: No Restrictions, As Tolerated Follow Up/Referral: follow up in dc clinic in 1-2 weeks follow up with PCP Medications: continue home medications Scheduled Metformin Hydrochloride (Metformin Hcl), 1 TAB PO DAILY, (Reported) Methotrexate (Methotrexate), 4 TAB PO QWEEKLY, (Reported) Discharge Statement: "Patient was advised to return to the ER or call 911 if any headaches, dizziness, shortness of breath, chest pain, abdominal pain, bleeding, fevers, or worsening of medical condition. Patient was counseled about treatment plan, medications, possible side effects, patientverbalized understanding. All questions were answered to the best of my ability. This discharge took greater then 30 minutes in planning, reviewing documentation, counseling the patient, and discussing with other team members." ASSESSMENT ASSESSMENT Assessment acute intractable headache likely secondary to hypertension Date of Service: May 30, 2025 Billing Provider: MIRELA OVIEDO MD Common Visit Codes: [id number]-XRB/OBS DISCH DAY >30min Date of Service: May 30, 2025 Billing Provider: MIRELA OVIEDO MD Common Visit Codes: 00914-BKJ/OBS DISCH DAY >30min CM [facility]INGER RESIDENT May 30, 2025 10:56 MIRELA OVIEDO MD May 30, 2025 22:47
[2025-05-30 11:14] VITALS: BP 125/81; PULSE 65; RESP 18; TEMP 36.7; O2SAT 95
[2025-05-30 12:54] VITALS: BP 108/70; PULSE 56; RESP 20; TEMP 98.2; O2SAT 95
--- NOTE | 2025-06-02 07:43 | ECG ---
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
== END 2025-05-30 12:30 | disposition home or self-care (01) | DRG 54 ==
LOC: ER 11:04 → OVERFLOW 20:59 → TELE-CENTR 05-29 15:00
PROVIDERS: ADMIT Internal Medicine; ATTEND Internal Medicine
DX: G43.809 Other migraine, not intractable, without status migrainosus (principal); I16.0 Hypertensive urgency; E11.65 Type 2 diabetes mellitus with hyperglycemia; I10 Essential (primary) hypertension; M06.8A Other specified rheumatoid arthritis, other specified site; Z86.73 Personal history of transient ischemic attack (TIA), and cerebral infarction without residual deficits; Z79.899 Other long term (current) drug therapy
CPT/HCPCS: 36415; 70450; 70551; 71045; 80048; 80053; 80076; 80307; 81001; 82962; 83036; 83880; 84443; 84484; 85007; 85025; 85027; 85652; 86141; 93005; 99291; 99292; G0378; J1815